=== PATIENT | male | born 1985 | race Caucasian/White ===

== ENCOUNTER 2018-09-03 16:02 | Emergency (ER) | payer MEDICAID, OTHER ==
[~2018-09-03] VITALS: Ht 182.9 cm; Wt 65.0 kg
[~2018-09-03 16:02] MED LIST: ALBU6.7H INH; ASPI-1264 PO; DIPH-423 PO; ONDA4TAB6 PO; PRED50TA PO
[2018-09-03] MEDS ORDERED: ondansetron 4mg rapidly disintigrating tab PO ONE ×2 (16:10→16:15)
[2018-09-03] MEDS ORDERED: cloNIDine 0.1 mg tablet PO ONE (16:15)
[2018-09-03] MEDS ORDERED: ONDA8TAB6 PO (16:15)
[2018-09-03] MEDS ORDERED: CLON-529 PO (16:15)
[2018-09-03 16:36] VITALS: BP 112/84
== END 2018-09-03 16:37 | disposition home or self-care (01) ==
LOC: EEVIPCON 16:03 → ER 16:03
DX: S00.83XA Contusion of other part of head, initial encounter (principal); F11.23 Opioid dependence with withdrawal; G89.29 Other chronic pain; F19.90 Other psychoactive substance use, unspecified, uncomplicated; Z87.891 Personal history of nicotine dependence; Z79.82 Long term (current) use of aspirin; Z79.899 Other long term (current) drug therapy; X58.XXXA Exposure to other specified factors, initial encounter; Y93.89 Activity, other specified; Y92.89 Other specified places as the place of occurrence of the external cause; Y99.8 Other external cause status
CPT/HCPCS: 93005; 99284

== ENCOUNTER 2019-02-25 17:57 | Emergency (ER) | payer MEDICAID, OTHER ==
[~2019-02-25] VITALS: Ht 182.9 cm; Wt 150.0 kg
[~2019-02-25 17:57] MED LIST changes: +CLON-529 PO; +ONDA8TAB6 PO
[2019-02-25 18:08] VITALS: BP 123/77
[2019-02-25] MEDS ORDERED: vancomycin/NS 1 GM ADD-VANTAGE 250 ML IV ONE (18:25)
[2019-02-25] MEDS ORDERED: normal saline 1000ML IV soln IV ONE (18:25)
[2019-02-25] MEDS ORDERED: CefTRIAXone 2gm/D5W 50ml 50 ML IV ONE (18:25)
[2019-02-25] MEDS ORDERED: LIDOcaine 1% w/epiNEPHrine 1:200,000 30ml vial IM ONE (18:30)
[2019-02-25 20:03] LABS: ALBUMIN 3.1 G/DL (3.4-5.0); ANION GAP 9 (8-16); BILIRUBIN,TOTAL 0.3 MG/DL (0.1-1.0); BLOOD UREA NITROGEN 8 MG/DL (7-18); BUN/CREATININE RATIO 10.3 (5.4-32.0); CALCIUM 8.9 MG/DL (8.5-10.1); CHLORIDE 103 MMOL/L (99-107); CREATININE 0.78 MG/DL (0.60-1.10); GLUCOSE 105 MG/DL (70-104); INR 1.1 INR; MAGNESIUM 2.1 MG/DL (1.5-2.4); SODIUM 141 MMOL/L (135-145); TOTAL CARBON DIOXIDE 28.8 MMOL/L (24-32); TOTAL PROTEIN 7.3 G/DL (6.4-8.2); eGFR > 90 ML/MIN
[2019-02-25 20:04] LABS: ALANINE AMINOTRANSFERASE 19 U/L (12-78); ALBUMIN/GLOBULIN RATIO 0.7 (1.1-1.5); ALKALINE PHOSPHATASE 82 IU/L (46-116); ASPARTATE AMINO TRANSFERASE 15 U/L (10-37)
[2019-02-25 20:05] LABS: BASOPHILS % (AUTO) 0.2 % (0-1); EOSINOPHILS % (AUTO) 0.3 % (0-6); HEMATOCRIT 30.4 % (42.0-52.0); HEMOGLOBIN 10.1 g/dl (14.0-17.9); LYMPHOCYTES # (AUTO) 1.5 X10'3 (1.1-4.8); LYMPHOCYTES % (AUTO) 12.7 % (21-51); MEAN CORPUSCULAR HEMOGLOBIN 26.1 PG (27.0-31.0); MEAN CORPUSCULAR HGB CONC 33.1 g/dL (33.0-36.5); MEAN CORPUSCULAR VOLUME 78.7 FL (78-98); MEAN PLATELET VOLUME 8.3 FL (7.4-10.4); MONOCYTES # (AUTO) 0.9 X10'3 (0-0.9); MONOCYTES % (AUTO) 7.6 % (2-12); NEUTROPHILS # (AUTO) 9.3 X10'3 (1.8-7.7); NEUTROPHILS % (AUTO) 79.2 % (42-75); PLATELET COUNT 270 X10'3 (140-440); RED BLOOD COUNT 3.86 X10'6 (4.70-6.10); RED CELL DISTRIBUTION WIDTH 14.2 % (11.5-14.5); WHITE BLOOD COUNT 11.7 X10'3 (4.5-11.0)
== END 2019-02-25 19:51 | disposition left against medical advice (07) ==
LOC: ER 17:58
DX: L02.415 Cutaneous abscess of right lower limb (principal); G89.29 Other chronic pain; F11.10 Opioid abuse, uncomplicated; F12.10 Cannabis abuse, uncomplicated; Z56.0 Unemployment, unspecified; Z79.899 Other long term (current) drug therapy
CPT/HCPCS: 36415; 80053; 83605; 83735; 84145; 85025; 85610; 87040; 87077; 87186; 96365; 99283; J0696; J3370; J3490; J7030

== ENCOUNTER 2020-12-23 23:11 | Emergency (ER) | payer MEDICAID ==
[~2020-12-23] VITALS: Ht 182.9 cm; Wt 86.4 kg
[~2020-12-23 23:11] MED LIST changes: -ALBU6.7H INH; +ALBU6.7H9 INH
[2020-12-23 23:16] VITALS: BP 111/51
[2020-12-24] MEDS ORDERED: DOXYCYCLINE 100MG CAPSULE PO STA (00:03)
[2020-12-24] MEDS ORDERED: DOXY100C43 PO (00:03)
[2020-12-24] MEDS ORDERED: CEPH500C5 PO (00:03)
[2020-12-24] MEDS ORDERED: cephalexin 500mg capsule PO ONE (00:05)
== END 2020-12-24 00:17 | disposition home or self-care (01) ==
LOC: ER 23:11
DX: L03.116 Cellulitis of left lower limb (principal); M25.572 Pain in left ankle and joints of left foot; G89.29 Other chronic pain; F17.200 Nicotine dependence, unspecified, uncomplicated; F15.90 Other stimulant use, unspecified, uncomplicated; F11.90 Opioid use, unspecified, uncomplicated; Z60.2 Problems related to living alone; Z56.0 Unemployment, unspecified; Z79.2 Long term (current) use of antibiotics; Z79.899 Other long term (current) drug therapy
CPT/HCPCS: 99283